=== PATIENT | female | born 1990 | race Caucasian/White ===

== ENCOUNTER 2017-05-08 01:19 | Emergency (ER) | payer SELFPAY ==
[~2017-05-08] VITALS: Ht 154.9 cm; Wt 46.0 kg
[2017-05-08] MEDS ORDERED: IBUPROFEN 600MG TABLET PO ONE (04:30)
[2017-05-08 05:04] VITALS: BP 98/55
== END 2017-05-08 05:05 | disposition home or self-care (01) ==
LOC: ER 01:19
DX: S09.8XXA Other specified injuries of head, initial encounter (principal); Y04.0XXA Assault by unarmed brawl or fight, initial encounter; Y93.89 Activity, other specified; Y92.59 Other trade areas as the place of occurrence of the external cause
CPT/HCPCS: 70450; 70486; 81025; 99284; Z7610